=== PATIENT | male | born 1955 | race Caucasian/White ===

== ENCOUNTER → 2017-01-28 | Outpatient (CLI) | payer OTHER ==
[~2017-01-28] MED LIST: ALBU1AER9 INH; ALFU1TAB2 PO; ASPI81TA28 PO; FENO145T26 PO; TRIA75TA PO
[2017-01-28 12:59] LABS: BASO % 0.6 %; BASO ABS # 0.08 K/uL (0-0.2); COMPLETE YES; EOS % 4.4 %; HEMATOCRIT 52.4 % (42-52); IG% 1.1 %; LYMPH % 26.9 %; LYMPH ABS # 3.48 K/uL (1.2-3.4); MEAN CELL VOLUME 91.1 fL (80-100); MEAN CORPUSCULAR HEMOGLOBIN 31.8 pg (25-34); MEAN CORPUSCULAR HGB CONC 34.9 g/dl (32-36); MEAN PLATELET VOLUME 9.9 fL (7.4-10.4); MONO % 12.1 %; NEUT % 54.9 %; PLATELET COUNT 367 K/uL (130-400); RED BLOOD COUNT 5.75 M/uL (4.7-6.1); WHITE BLOOD COUNT 12.94 K/uL (4.8-10.8)
[2017-01-28 13:25] LABS: ESTIMATED AVERAGE GLUCOSE 100 mg/dl; HA1C FLAG Normal (Normal)
[2017-01-28 13:36] LABS: ALT/SGPT 50 U/L (12-78); BLOOD UREA NITROGEN 19 mg/dl (7-18); BUN/CREATININE RATIO 14.4 (10-20); CARBON DIOXIDE 28 mmol/L (21-32); CHLORIDE 108 mmol/L (98-107); CHOLESTEROL 213 mg/dl (0-200); GLUCOSE 98 mg/dl (70-99); SODIUM 141 mmol/L (136-145); TRIGLYCERIDES 229 mg/dl (0-150); VERY LOW DENSITY LIPOPROT CALC 46 mg/dl
[2017-01-28 14:03] LABS: ALKALINE PHOSPHATASE 59 U/L (45-117); AST/SGOT 50 U/L (15-37); CHOLESTEROL/HDL RATIO 5.9; HDL CHOLESTEROL 36 mg/dl; LDL CHOLESTEROL CALCULATED 131 mg/dl
== END | disposition home or self-care (01) ==
LOC: C.LABPVFM 09:09
PROVIDERS: ATTEND Nurse Practitioner Family
DX: R39.9 Unspecified symptoms and signs involving the genitourinary system (principal); R73.01 Impaired fasting glucose; E78.5 Hyperlipidemia, unspecified; F41.9 Anxiety disorder, unspecified; D45 Polycythemia vera

== ENCOUNTER → 2017-03-30 | Outpatient (CLI) | payer OTHER | END | disposition home or self-care (01) | LOC: C.LABPVFM 08:53 | PROVIDERS: ATTEND Nurse Practitioner Family | DX: E55.9 Vitamin D deficiency, unspecified (principal) ==

== ENCOUNTER → 2017-05-08 | Outpatient (CLI) | payer OTHER ==
[2017-05-09 12:41] VITALS: PULSE 62; O2SAT 90
== END | disposition home or self-care (01) ==
LOC: C.RC 16:41
PROVIDERS: ATTEND Physician Assistant
DX: D45 Polycythemia vera (principal); J45.909 Unspecified asthma, uncomplicated

== ENCOUNTER → 2017-06-15 | Outpatient (CLI) | payer OTHER ==
[2017-06-15 17:40] LABS: HEMATOCRIT 50.3 % (42-52); HEMOGLOBIN 16.7 g/dL (14.0-18.0); MEAN CELL VOLUME 89.3 fL (80-100); MEAN CORPUSCULAR HEMOGLOBIN 29.7 pg (25-34); MEAN CORPUSCULAR HGB CONC 33.2 g/dl (32-36); NUCLEATED RED BLOOD CELL ABS 0.02 K/uL (0-0); PLATELET COUNT 446 K/uL (130-400); RED CELL DISTRIBUTION WIDTH CV 14.1 % (11.5-14.5); RED CELL DISTRIBUTION WIDTH SD 45.8 fL (36.4-46.3); WHITE BLOOD COUNT 13.36 K/uL (4.8-10.8)
== END | disposition home or self-care (01) ==
LOC: C.LABPVFM 13:26
PROVIDERS: ATTEND Internal Medicine Hematology & Oncology
DX: D75.1 Secondary polycythemia (principal)

== ENCOUNTER 2021-09-07 06:25 | Observation (INO) ==
--- NOTE | 2021-08-05 16:52 | PAT Medication Instructions ---
Medication Instructions Date of Service August 05, 2021 Home Medications Medication Instructions Recorded sodium chloride 3.5 % for 3 ml INHALATION BID #240 ml 10/09/20 nebulization (Hyper-Sigifredo) CPAP Machine #1 ea 04/12/21 albuterol sulfate 90 mcg/actuation 2 puff INHALATION QID PRN #54 g 06/03/21 aerosol inhaler (Ventolin HFA) Wheeled Walker #1 ea 07/23/21 budesonide 160 mcg-glycopyr 9 2 inh INHALATION BID #3 inhaler 07/27/21 mcg-formot 4.8 mcg/actuation HFA inhaler (Breztri Aerosphere) cholecalciferol (vitamin D3) 25 mcg (1,000 unit) capsule (Vitamin D3) 1,000 unit PO QAM umgsmmngftum-utgcoagl-ljtqba tablet (Multivitamin 50 Plus) 1 tab PO QAM aspirin 81 mg tablet 81 mg PO QAM ipratropium 0.5 mg-albuterol 3 mg (2.5 mg base)/3 mL nebulization soln 3 ml INH QID PRN sodium chloride 3.5 % for nebulization (Hyper-Sigifredo) 3 ml INHALATION BID CPAP Machine #1 ea albuterol sulfate 90 mcg/actuation aerosol inhaler (Ventolin HFA) 2 puff INHALATION QID PRN Wheeled Walker #1 ea budesonide 160 mcg-glycopyr 9 mcg-formot 4.8 mcg/actuation HFA inhaler (Breztri Aerosphere) 2 inh INHALATION BID bupropion HCl 100 mg tablet,12 hr sustained-release 100 mg PO QAM furosemide 20 mg tablet (Lasix) 20 mg PO QAM lisinopril 20 mg tablet 20 mg PO QAM potassium chloride 10 mEq tablet,extended release 10 meq PO QAM rosuvastatin 10 mg tablet 10 mg PO QAM DO NOT take the morning of surgery cholecalciferol (vitamin D3) 25 mcg (1,000 unit) capsule (Vitamin D3) 1,000 unit PO QAM qoudvhjgrpoz-xncljxow-icdvup tablet (Multivitamin 50 Plus) 1 tab PO QAM furosemide 20 mg tablet (Lasix) 20 mg PO QAM lisinopril 20 mg tablet 20 mg PO QAM potassium chloride 10 mEq tablet,extended release 10 meq PO QAM Take morning of surgery With a small sip of water, OTHERWISE NOTHING TO EAT OR DRINK AFTER MIDNIGHT: aspirin 81 mg tablet 81 mg PO QAM (unless directed otherwise by surgeon) ipratropium 0.5 mg-albuterol 3 mg (2.5 mg base)/3 mL nebulization soln 3 ml INH QID PRN(if needed) sodium chloride 3.5 % for nebulization (Hyper-Sigifredo) 3 ml INHALATION BID albuterol sulfate 90 mcg/actuation aerosol inhaler (Ventolin HFA) 2 puff INHALATION QID PRN(use if needed; please bring with you to hospital day of surgery if possible) budesonide 160 mcg-glycopyr 9 mcg-formot 4.8 mcg/actuation HFA inhaler (Breztri Aerosphere) 2 inh INHALATION BID rosuvastatin 10 mg tablet 10 mg PO QAM bupropion HCl 100 mg tablet,12 hr sustained-release 100 mg PO QAM Take evening before surgery ipratropium 0.5 mg-albuterol 3 mg (2.5 mg base)/3 mL nebulization soln 3 ml INH QID PRN(if needed) sodium chloride 3.5 % for nebulization (Hyper-Sigifredo) 3 ml INHALATION BID albuterol sulfate 90 mcg/actuation aerosol inhaler (Ventolin HFA) 2 puff INHALATION QID PRN(if needed) budesonide 160 mcg-glycopyr 9 mcg-formot 4.8 mcg/actuation HFA inhaler (Breztri Aerosphere) 2 inh INHALATION BID Other Notes If you have any questions please call us at [phone] or [phone] or [phone] or [phone]
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
[~2021-09-07 06:25] MED LIST changes: +ACETAMINOPHEN 500 MG TAB PO SCH; -ALBU1AER9 INH; -ALFU1TAB2 PO; -ASPI81TA28 PO; +BUPIVACAINE LIPOSOME/PF 266 MG, BUPIVACAINE/EPINEPHRINE 50 ML, SODIUM CHLORIDE 0.9% 30 ... INFIL SCH; +FAMOTIDINE 20 MG TAB PO SCH; -FENO145T26 PO; +GABAPENTIN 300 MG CAP PO SCH; +LR 500ML BOLUS, THEN 15ML/HR IV SCH; +LR 60ML/HR IV SCH; +Scopolamine 1 MG TDSY TD SCH; +TRANEXAMIC ACID 1,000 MG **IV Intra-op IV SCH; +TRANEXAMIC ACID 1,000 MG **IV Pre-op IV SCH; -TRIA75TA PO; +dexAMETHasone 4 MG TAB PO SCH
[2021-09-07] MEDS ORDERED: BUPIVACAINE 0.5 % 5 MG/1 ML PF 10ML VIAL ONE (06:29)
[2021-09-07] MEDS ORDERED: ROPIVACAINE 0.5% 5 MG/ML 30 ML VIAL ONE (06:29)
--- NOTE | 2021-09-07 06:53 | History & Physical Bridge Note ---
Date of Service September 07, 2021 History & Physical Bridge Note I have examined the patient, reviewed the History & Physical and in the interval since the performance of the History & Physical I have noted the following changes of clinical significance: no changes noted
[2021-09-07] MEDS ORDERED: fentaNYL citrate 100 MCG/2 ML VIAL ONE (07:25)
[2021-09-07] MEDS ORDERED: PROPOFOL IV EMULSION 10 MG/ML 20 ML VIAL IV ONE ×3 (07:25→10:57)
[2021-09-07] MEDS ORDERED: MIDAZOLAM HCL 1 MG/ML 2ML VIAL ONE ×2 (07:26→10:09)
[2021-09-07] MEDS ORDERED: ATROPINE SULFATE 0.1 MG/ML 10ML SYR IV PRN (08:27)
[2021-09-07] MEDS ORDERED: fentaNYL citrate 100 MCG/2 ML VIAL IV PRN (08:27)
[2021-09-07] MEDS ORDERED: ONDANSETRON INJ 2 MG/ML 2 ML VIAL IV PRN ×2 (08:27→12:27)
[2021-09-07] MEDS ORDERED: ePHEDrine sulfate 50 MG/ML AMP IV PRN (08:27)
[2021-09-07] MEDS ORDERED: SODIUM CHLORIDE 0.9% PF 50 ML VIAL ONE (08:46)
[2021-09-07] MEDS ORDERED: BUPIVACAINE/EPINEPHRINE 0.25% 1:200,000 30 ML VIAL ONE (08:46)
[2021-09-07] MEDS ORDERED: BUPIVACAINE LIPOSOME 1.3% 266 MG/20 ML VIAL ONE (08:46)
[2021-09-07] MEDS ORDERED: Nursing to Pharmacy Communication SCH (09:00)
[2021-09-07] MEDS ORDERED: VANCOMYCIN HCL 1000MG/20ML VIAL ONE (09:18)
[2021-09-07] MEDS ORDERED: ePHEDrine sulfate 50 MG/ML AMP ONE (09:25)
[2021-09-07] MEDS ORDERED: PHENYLEPHRINE 100MCG/ML 5ML SYR ONE (09:25)
[2021-09-07] MEDS ORDERED: GLYCOPYRROLATE 0.2 MG/ML VIAL ONE (09:27)
[2021-09-07] MEDS ORDERED: ONDANSETRON INJ 2 MG/ML 2 ML VIAL ONE (09:27)
[2021-09-07] MEDS ORDERED: KETAMINE 50 MG/5 ML SYRINGE ONE (09:27)
--- NOTE | 2021-09-07 11:24 | Operative Report ---
PG Post Operative Report Pre & Post Diagnosis Operation Date: 09/07/21 08:50 Pre-Op Diagnosis: Right Knee Advanced Degenerative Joint Disease Post-Op Diagnosis: Right Knee Advanced Degenerative Joint Disease I identified the patient and participated in the time-out.: Yes Procedure Operation Date: 09/07/21 08:50 Actual Procedures p Right Total Knee Arthroplasty(Right) - Stan Henderson MD Surgeon Stan Henderson MD Field Radio Operator Rolando Lipscomb PA-C Estimated Blood Loss 100 Findings Consistent with Post-Op Diagnosis Operative findings revealed advanced right knee tricompartment DJD. He had pretty extensive grade 4 vvci-vs-jnjd disease in all 3 compartments most severe in the medial side. He had a fixed varus deformity to his knee and about a 10 degree flexion contracture preoperatively. Moderate-sized joint effusion. Fluids 1200 cc Specimens Right knee sent for pathology Anesthesia Type Spinal MAC Complications none Indications Patient is 65-year-old gentleman said a long history of bilateral knee pain discomfort right side greater than left. Is been through extensive conservative treatment of years which became less successful over time. X-rays show advanced right knee DJD. He is a very large gentleman with a BMI of 53. He elected proceed with total knee arthroplasty. We put a stem in his tibia in order to try to minimize his risk of loosening. Description of Procedure Operative implants consist of: 1 Biomet Vanguard size 75 right posterior stabilized femoral component. 2. Biomet Vanguard 360 size 79 tibial tray with a 80 mm x 16 mm stem with a 5 mm offset and a small cruciate wing. 3. 10 mm posterior stabilized polyethylene insert. 4. Is a 34 x 8 and half all probably patella. The patient was taken the operating, identified, and placed on the operating table supine position protectors were properly padded. IV antibiotics tried by anesthesia team. A spinal anesthetic and abductor canal block had provided holding area. A Abdi catheter was placed in sterile fashion a right thigh turn was then placed in the right lower extremities then prepped and draped in usual sterile fashion. The right leg was elevated exsanguinated with use of an Esmarch in terms playset 350 mmHg. An anterior approach of the right knee was then performed through a longitudinal incision centered over the patella. Sharp dissection was carried through subcutaneous tissue down to the level of the extensor mechanism. A medial parapatellar arthrotomy incision was made. Some subperiosteal dissection was carried out medially. The fat pad was resected beneath patella tendon. Lateral patellofemoral ligament was released. Patella subluxated laterally and the knee was flexed. The osteophytes were taken off distal femur. The ACL and PCL were then released from distal femur the tibia subluxated anteriorly. I then resected the tibial eminence. The canal finder was used to enter the IM canal and then reamed up to a size 16. The intramedullary cutting guide was attached to the IM felisha and the proximal tibial cut was made remove about a millimeter bone from most deficient aspect of the posterior medial tibial plateau. The tibia was then sized to a size 79. This femoral osteophytes taken off medial and posterior medially. This was prepared for a 5 mm offset stem and a small cruciate wing. The implant was assembled and placed and fit nicely. Attention drawn the femur. The distal femur examined the sharp drop with intramedullary canal was suction. A right 6 degree valgus cutting guide was placed. Distal femoral cutting block was pinned in place. Distal femoral cut was made to take an additional 3 mm bone off distal femur. The femur was then sized to a size 75. We did downsize this slightly. The AP cutting block was pinned parallel to the epicondylar axis which was 4 degrees of external rotation. Anterior cut, anterior chamfer, posterior cut, posterior chamfer cuts were made. The box cutting guide was plac ed in just slight lateral box cut was made. The knee was flexed. The remnants of medial lateral menisci were excised. The osteophytes were taken off the posterior aspect of femur. A trial femoral component was placed. The tibial tray was already in place. I then trialed the knee and the 10 mm insert fit most appropriately. Attention drawn the patella. The patella was cleaned of all soft tissues. Patella thickness measured 22 mm in thickness was cut down to 14. Was sized to a size 34 patella. The lateral osteophyte was removed. The lug holes were drilled for the 34 patella. I then trialed the knee and the patella tracked nicely with no thumbs test. Attention drawn to placing permanent components. Nupathe all trial components were removed. A bone plug was placed into the distal femur limit blood loss. Double batch Palacos G cement was mixed. I did add an additional gram of vancomycin due to this patient's history of morbid obesity. A Biomet Vanguard size 75 right posterior stabilized femoral component, size 79 tibial tray with an 80 x 16 mm offset stem and a small cruciate wing, a 10 mm posterior stabilized polyethylene insert, and a 34 x 8 and half all polypatella then cemented in place. New spreadout into full extension until cement hardened. Final cement checkup then performed. Pericapsular tissues were injected with a total of 100 cc of combination of 20 cc of Exparel, 30 cc normal saline, 50 cc of quarter percent Marcaine with epinephrine. Patient did receive 1 g tranexamic acid. The tourniquet was then let down for turn time 70 minutes. Hemostasis reduced electrocautery. Extensor mechanism closed with combination 1 PDS suture #1 Vicryl suture in hapgnd-ob-osffa fashion. Extensor mechanism checked found to be intact the subcutaneous tissue then closed 2 Dexon suture in buried interrupted fashion skin was closed skin trev. Leg was then cleaned and dried a sterile dressing was Xeroform, 4 fours, sterile cast padding, Raymond bandage were applied. Patient then transferred to the recovery room in stable condition. Patient tolerated procedure well and there were no complications. Rolando Lipscomb, my physician laundry assistant, was present for the entire procedure. His assistance was essential and required for appropriate patient positioning, prepping and draping, surgical exposure, performing the technical details of the operation, placement the implants, closure of the wound, and placement of the sterile bandage. I attest to the content of the Intraoperative Record and any orders documented therein. Any exceptions are noted below.
--- NOTE | 2021-09-07 12:10 | Anesthesiology Progress Note ---
Date of Service September 07, 2021 Anesthesia Post Procedure Vital Signs Vital Signs: Temp Pulse Pulse Resp BP Pulse Ox 09/07/21 12:00 85 20 131/67 95 09/07/21 11:45 84 20 125/67 97 09/07/21 11:35 97.5 F L 81 22 134/70 98 09/07/21 11:25 90 22 131/60 95 09/07/21 11:15 98.2 F 93 H 14 121/57 L 97 09/07/21 07:16 98.2 F 88 22 134/77 96 Pain Intensity Right Knee: Pain Intensity: 3 Transfer of Care Handoff Completed per policy Notes Mental Status: alert / awake / arousable and participated in evaluation Patient Amnestic to Procedure: Yes Nausea / Vomiting: adequately controlled Pain: adequately controlled Airway Patency, RR, SpO2: stable & adequate BP & HR: stable & adequate Hydration State: stable & adequate Neuraxial Anesthesia: was administered and sensory block is resolving Anesthetic Complications: no major complications apparent and Pt Satisfied with anesthetic care
[2021-09-07] MEDS ORDERED: ALBUTEROL HFA 8 GM INHALER INH PRN (12:27)
[2021-09-07] MEDS ORDERED: METOCLOPRAMIDE HCL INJ 5 MG/ML 2 ML VIAL IV PRN (12:27)
[2021-09-07] MEDS ORDERED: NALOXONE HCL 0.4 MG/1 ML VIAL/CARP IV PRN (12:27)
[2021-09-07] MEDS ORDERED: ALBUT/IPRATROP 3MG/0.5MG NEB 3 ML VIAL INH PRN (12:27)
[2021-09-07] MEDS ORDERED: bisacodyL 10 MG SUPP PR PRN (12:27)
[2021-09-07] MEDS ORDERED: MAGNESIUM HYDROXIDE SUSP 30 ML UDC PO PRN (12:27)
[2021-09-07] MEDS ORDERED: ALUMINUM/MAGNESIUM SUSP 30 ML UDC PO PRN (12:27)
--- NOTE | 2021-09-07 13:29 | XRay Report ---
XR knee RT 1 or 2V routine CLINICAL HISTORY: Postoperative evaluation. COMPARISON: Right knee radiographs January 20, 2021. FINDINGS: Alignment of the total right knee arthroplasty is anatomic. There is a longstem tibial com ponent. Skin trev are present. No periprosthetic fracture or unexpected radiopaque foreign bodies are present. IMPRESSION: Expected findings following total right knee arthroplasty. ACT 112: Negative or not required by law. Electronically signed by: Ty Archuleta M.D. 09/07/2021 1:27 PM
[2021-09-07] MEDS: SODIUM CHLORIDE 0.9% 1000ML 1,000 ML IV SCH ×2 (14:11→19:54)
[2021-09-07] MEDS: oxyCODONE HCL IR 5 MG TAB (IMMEDIATE RELEASE) PO PRN (14:15)
[2021-09-07] MEDS: KETOROLAC 30 MG/ML VIAL IV SCH ×2 (14:15→19:54)
[2021-09-07] MEDS: Scopolamine CHECK PATCH PLACEMENT SCH ×2 (15:16→22:32)
[2021-09-07] MEDS: HYDROmorphone INJ 0.5 MG/0.5 ML SYR IV PRN (16:48)
[2021-09-07] MEDS: ceFAZolin 2000MG 2,000 MG/15 ML SYR IV SCH ×2 (16:48→22:31)
[2021-09-07] MEDS: ASCORBIC ACID 500 MG TAB PO SCH (16:48)
[2021-09-07] MEDS ORDERED: TRANEXAMIC ACID / 0.7% NACL 1,000 MG/100 ML BAG IV SCH (17:15)
[2021-09-07] MEDS: ASPIRIN 81 MG ECTAB PO SCH (19:54)
[2021-09-07] MEDS: DOCUSATE SODIUM 100 MG CAP PO SCH (19:55)
[2021-09-07] MEDS: SENNA 8.6 MG TAB PO SCH (19:55)
[2021-09-07] MEDS: TAPENTADOL HCL ER 50 MG TABCR PO SCH (20:17)
[2021-09-07] MEDS: ACETAMINOPHEN 500 MG TAB PO SCH (22:31)
[2021-09-08] MEDS: KETOROLAC 30 MG/ML VIAL IV SCH ×4 (02:02→19:22)
[2021-09-08] MEDS: SODIUM CHLORIDE 0.9% 1000ML 1,000 ML IV SCH (02:02)
[2021-09-08] MEDS: ACETAMINOPHEN 500 MG TAB PO SCH ×3 (05:15→21:22)
[2021-09-08] MEDS: oxyCODONE HCL IR 5 MG TAB (IMMEDIATE RELEASE) PO PRN ×3 (05:16→18:13)
[2021-09-08] MEDS: HYDROmorphone INJ 0.5 MG/0.5 ML SYR IV PRN (06:27)
[2021-09-08 06:51] LABS: Hematocrit (blood only) 34.6 % (42-52); Hemoglobin 10.4 g/dL (14.0-18.0); Mean Corpuscular Hgb Conc 30.1 g/dL (32-36); Mean Corpuscular Volume 79.9 fL (80-100); Mean Platelet Volume 8.4 fL (7.4-10.4); Platelet Count 331 K/uL (130-400); RDW Coefficient of Variation 16.1 % (11.5-14.5); RDW Standard Deviation 46.9 fL (36.4-46.3); Red Blood Count 4.33 M/uL (4.7-6.1); White Blood Count 22.49 K/uL (4.8-10.8)
[2021-09-08 07:11] LABS: BUN Creatinine Ratio 17.7 (10-20); Calcium 8.5 mg/dl (8.5-10.1); Creatinine Clr Calc Pharmacy 97.7 ml/min; Est GFR (African American) 78.6 ml/min; Est GFR (Non-African American) 67.8 ml/min; Potassium 4.6 mmol/L (3.5-5.1)
[2021-09-08] MEDS ORDERED: dexAMETHasone 10 MG in SYRINGE 0 ML IV SCH (08:00)
[2021-09-08] MEDS: TAPENTADOL HCL ER 50 MG TABCR PO SCH ×2 (08:54→21:22)
[2021-09-08] MEDS: MULTIVITAMIN TAB PO SCH (08:54)
[2021-09-08] MEDS: ASCORBIC ACID 500 MG TAB PO SCH ×2 (08:54→16:11)
[2021-09-08] MEDS: TAMSULOSIN HCL 0.4 MG CAP PO SCH (08:54)
[2021-09-08] MEDS: ROSUVASTATIN CALCIUM 10 MG TAB PO SCH (08:54)
[2021-09-08] MEDS: CHOLECALCIFEROL 1,000 UNITS 25 MCG TAB PO SCH (08:54)
[2021-09-08] MEDS: POTASSIUM CHLORIDE 10 MEQ TABCR PO SCH (08:55)
[2021-09-08] MEDS: ASPIRIN 81 MG ECTAB PO SCH ×2 (08:55→21:22)
[2021-09-08] MEDS: Scopolamine CHECK PATCH PLACEMENT SCH ×3 (08:55→23:09)
[2021-09-08] MEDS: CEROVITE ADV FORMULA TAB PO SCH (08:55)
[2021-09-08] MEDS: FUROSEMIDE 20 MG TAB PO SCH (08:55)
[2021-09-08] MEDS: DOCUSATE SODIUM/SENNA 50/8.6MG TAB PO SCH (08:55)
[2021-09-08] MEDS: lisinopril 20 MG TAB PO SCH (08:55)
[2021-09-08] MEDS: buPROPion SR 100 MG TABCR PO SCH (08:55)
[2021-09-08] MEDS: DOCUSATE SODIUM 100 MG CAP PO SCH ×2 (08:55→21:22)
--- NOTE | 2021-09-08 15:03 | Progress Notes ---
DATE OF NOTE: 09/08/2021. SUBJECTIVE: A 65-year-old gentleman, postoperative day 1 from a right knee replacement. Having quit e a bit of pain. He says the oral pain medicine is not working too well. He is using some IV medici ne which seems to help quite a bit more. No chest pain or shortness of breath. Not feeling dizzy or lightheaded. OBJECTIVE: VITAL SIGNS: Temperature is 37.0. Vital signs are stable. GENERAL: Shows a large, obese, middle-aged male. Sitting up in his bedside chair. He looks reasona tye comfortable. LUNGS: Clear to auscultation. HEART: Regular rate and rhythm. ABDOMEN: Soft, nontender, nondistended. EXTREMITIES: Grossly neurovascularly intact except as follows. Examination of the right leg reveals the dressing and bandage to be in place. There is a little bit of bloody drainage through the bandage. He can dorsiflex and plantarflex his foot appropriately. He is neurologically intact. He can do a straight leg raise with some effort. LABORATORY DATA: Hemoglobin 10.4. Hematocrit 34.6. Electrolytes are stable. ASSESSMENT: A 65-year-old male postop day 1 from right knee replacement. Having quite a bit of pain . He is neurologically intact. PLAN: 1. DVT prophylaxis include thigh-high TEDs, SCDs, and aspirin twice a day. 2. PT, OT, weightbear as tolerated. Right total knee protocol. 3. Pain control, doing okay with current pain regimen, but requiring IV medicine currently. We will see if we can get him just taking p.o. meds here in the next 24 hours. DISPOSITION: Plan is to discharge to home with some home health once he is medically stable and pain controlled. Job ID: [id number]
[2021-09-08] MEDS: SENNA 8.6 MG TAB PO SCH (21:22)
[2021-09-08 22:17] VITALS: TEMP 98.2
[2021-09-09] MEDS: KETOROLAC 30 MG/ML VIAL IV SCH ×2 (02:00→07:51)
[2021-09-09] MEDS: ACETAMINOPHEN 500 MG TAB PO SCH ×2 (05:44→14:59)
[2021-09-09 07:37] VITALS: BP 122/55; PULSE 66; O2SAT 95
[2021-09-09] MEDS: ROSUVASTATIN CALCIUM 10 MG TAB PO SCH (07:49)
[2021-09-09] MEDS: CEROVITE ADV FORMULA TAB PO SCH (07:49)
[2021-09-09] MEDS: lisinopril 20 MG TAB PO SCH (07:49)
[2021-09-09] MEDS: TAPENTADOL HCL ER 50 MG TABCR PO SCH (07:49)
[2021-09-09] MEDS: DOCUSATE SODIUM 100 MG CAP PO SCH (07:50)
[2021-09-09] MEDS: buPROPion SR 100 MG TABCR PO SCH (07:50)
[2021-09-09] MEDS: ASCORBIC ACID 500 MG TAB PO SCH (07:50)
[2021-09-09] MEDS: FUROSEMIDE 20 MG TAB PO SCH (07:50)
[2021-09-09] MEDS: DOCUSATE SODIUM/SENNA 50/8.6MG TAB PO SCH (07:50)
[2021-09-09] MEDS: POTASSIUM CHLORIDE 10 MEQ TABCR PO SCH (07:50)
[2021-09-09] MEDS: TAMSULOSIN HCL 0.4 MG CAP PO SCH (07:50)
[2021-09-09] MEDS: ASPIRIN 81 MG ECTAB PO SCH (07:50)
[2021-09-09] MEDS: CHOLECALCIFEROL 1,000 UNITS 25 MCG TAB PO SCH (07:50)
[2021-09-09] MEDS: Scopolamine CHECK PATCH PLACEMENT SCH (07:51)
[2021-09-09] MEDS: MULTIVITAMIN TAB PO SCH (07:51)
--- NOTE | 2021-09-09 15:35 | Progress Notes ---
DATE OF SERVICE: 09/09/2021 SUBJECTIVE: A 65-year-old gentleman now postop day 2 from right knee replacement. He is doing quite a bit better today. He is having pain, but it is controlled. No chest pain or shortness of breath. Not feeling dizzy or lightheaded. OBJECTIVE: VITAL SIGNS: Temperature 36.8. Vital signs are stable. PHYSICAL EXAMINATION: GENERAL: Shows a pleasant middle-aged male. He is sitting up in his bed, looked pretty comfortable this morning when I visited him. EXTREMITIES: Examination of the right leg reveals the dressing with just a slight bit of bloody drai nage on it. His leg is well aligned. Calf is soft and supple. He can dorsiflex and plantarflex his foot appropriately. LABORATORY: No new labs. ASSESSMENT: A 65-year-old gentleman postoperative day 2 from a right knee replacement. He seems to be doing quite a bit better today. His pain is controlled. He is neurologically intact. PLAN: 1. DVT prophylaxis includes thigh-high TEDs, SCDs, and aspirin twice a day. 2. PT, OT, weightbear as tolerated. Right total knee protocol. 3. Pain control, doing okay with current pain regimen. 4. Disposition: Plan to discharge to home with some home health today. Job ID: [id number]
--- NOTE | 2021-09-11 14:30 | Discharge Summary ---
Date of Service September 11, 2021 Discharge Data Procedures Performed Operation Date: 09/07/21 08:50 Actual Procedures p Right Total Knee Arthroplasty(Right) - Stan Henderson MD Hospital Course (1) Status post total right knee replacement: This patient is a 65 year old male admitted on 09/07/21 and underwent total knee arthroplasty. He tolerated the procedure well and there were no complications. Transferred to the PACU post op and later to the orthopedic floor for further care. He was given ancef for antibiotic prophylaxis. He was also given LUCIANA stockings, SCDs, and aspirin for DVT prophylaxis. Hemoglobin, hematocrit, and vital signs were monitored during his hospital stay and remained stable. Did not require any blood transfusions. There were no complications during his hospital stay. By post op day #2 the patient was tolerating a regular diet, pain was reasonably controlled with oral pain medicine, and he was participating in physical therapy. On post op day #2 the patient was discharged home and set up with home health care. He was given printed discharge instructions including prescriptions for extra strength tylenol, aspirin, toradol, zofran, flomax, and oxycodone. Continue physical therapy, weight bearing as tolerated. Continue LUCIANA stockings. Follow up approximately 2 weeks post op or sooner if there are problems or concerns. Coding Level of Care Code None Diagnoses Status post total right knee replacement Z96.651
== END 2021-09-09 15:23 | disposition home health service (06) ==
LOC: ASU 06:25 → 3E 06:25

== ENCOUNTER 2022-05-25 05:07 | Inpatient (IN) ==
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
[2022-05-25] MEDS ORDERED: METOCLOPRAMIDE HCL 10 MG TABLET PO SCH (06:00)
[2022-05-25] MEDS ORDERED: LR 500ML BOLUS, THEN 15ML/HR IV SCH (06:00)
[2022-05-25] MEDS ORDERED: FAMOTIDINE 20 MG TAB PO SCH (06:00)
[2022-05-25] MEDS ORDERED: LR 60ML/HR IV SCH (06:00)
[2022-05-25] MEDS ORDERED: Scopolamine 1 MG TDSY TD SCH (06:00)
[2022-05-25] MEDS ORDERED: TRANEXAMIC ACID 1,000 MG **IV Pre-op IV SCH (06:00)
[2022-05-25] MEDS ORDERED: CeleBREX 200 MG CAP PO SCH (06:00)
[2022-05-25] MEDS ORDERED: ACETAMINOPHEN 500 MG TAB PO SCH (06:00)
[2022-05-25] MEDS ORDERED: BUPIVACAINE 0.5 % 5 MG/1 ML PF 10ML VIAL ONE (06:17)
[2022-05-25] MEDS ORDERED: BUPIVACAINE/EPINEPHRINE 0.5% MPF 1:200,000 30 ML VIAL ONE (06:36)
[2022-05-25] MEDS ORDERED: fentaNYL citrate 100 MCG/2 ML VIAL ONE (06:44)
[2022-05-25] MEDS ORDERED: MIDAZOLAM HCL 1 MG/ML 2ML VIAL ONE ×3 (06:44→08:24)
[2022-05-25] MEDS ORDERED: MoRPHine SULFATE PF 1 MG/ML 10 ML AMP/VIAL ONE (06:45)
--- NOTE | 2022-05-25 06:58 | History & Physical Bridge Note ---
Date of Service May 25, 2022 History & Physical Bridge Note I have examined the patient, reviewed the History & Physical and in the interval since the performance of the History & Physical I have noted the following changes of clinical significance: no changes noted
[2022-05-25] MEDS ORDERED: ePHEDrine sulfate 50 MG/ML AMP IV PRN (07:03)
[2022-05-25] MEDS ORDERED: ONDANSETRON INJ 2 MG/ML 2 ML VIAL IV PRN ×2 (07:03→10:28)
[2022-05-25] MEDS ORDERED: ATROPINE SULFATE 0.1 MG/ML 10ML SYR IV PRN (07:03)
[2022-05-25] MEDS ORDERED: KETAMINE 50 MG/5 ML SYRINGE ONE (07:04)
[2022-05-25] MEDS ORDERED: ALBUMIN HUMAN 5% 12.5 GM/250 ML VIAL IV ONE (07:27)
[2022-05-25] MEDS ORDERED: LIDOCAINE 2% MPF LOCAL 5 ML VIAL INFIL ONE (07:40)
[2022-05-25] MEDS ORDERED: ONDANSETRON INJ 2 MG/ML 2 ML VIAL ONE (07:40)
[2022-05-25] MEDS ORDERED: PHENYLEPHRINE HCL 10 MG/ML VIAL ONE (07:40)
[2022-05-25] MEDS ORDERED: VASOPRESSIN 20 UNIT/ML VIAL ONE (07:40)
[2022-05-25] MEDS ORDERED: PROPOFOL IV EMULSION 10 MG/ML 20 ML VIAL IV ONE (07:40)
[2022-05-25] MEDS ORDERED: PHENYLEPHRINE 100MCG/ML 5ML SYR IV PRN (08:51)
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
[2022-05-25] MEDS: fentaNYL citrate 100 MCG/2 ML VIAL IV PRN ×4 (09:35→09:50)
--- NOTE | 2022-05-25 10:19 | Anesthesiology Progress Note ---
Date of Service May 25, 2022 Anesthesia Post Procedure Vital Signs Vital Signs: Temp Pulse Pulse Resp BP Pulse Ox O2 Del Method 05/25/22 09:25 79 15 122/76 100 Oxymask 05/25/22 09:15 89 20 108/68 94 Oxymask 05/25/22 09:55 36.6 C 87 14 131/67 93 Nasal Cannula 05/25/22 09:45 90 22 145/68 H 91 Nasal Cannula 05/25/22 09:35 91 H 14 108/67 96 Room Air 05/25/22 09:05 86 22 112/75 95 Oxymask 05/25/22 08:57 36.5 C 85 16 108/65 99 Oxymask 05/25/22 05:45 37.0 C 89 18 146/71 H 95 Room Air O2 Flow Rate 05/25/22 09:25 2 05/25/22 09:15 3 05/25/22 09:55 2 05/25/22 09:45 2 05/25/22 09:35 05/25/22 09:05 3 05/25/22 08:57 5 05/25/22 05:45 Pain Intensity Left Hip: Pain Intensity: 3 Transfer of Care Handoff Completed per policy Notes Mental Status: alert / awake / arousable and participated in evaluation Patient Amnestic to Procedure: Yes Nausea / Vomiting: adequately controlled Pain: adequately controlled Airway Patency, RR, SpO2: stable & adequate BP & HR: stable & adequate Hydration State: stable & adequate Neuraxial Anesthesia: was administered and sensory block is resolving Anesthetic Complications: no major complications apparent and Pt Satisfied with anesthetic care
[2022-05-25] MEDS ORDERED: TAMSULOSIN HCL 0.4 MG CAP PO SCH (10:28)
[2022-05-25] MEDS ORDERED: bisacodyL 10 MG SUPP PR PRN (10:28)
[2022-05-25] MEDS ORDERED: NON-FORMULARY MEDICATION (Multivitamin-Minerals-Lutein [Multivitamin 50 Plus] Tablet) PO SCH (10:28)
[2022-05-25] MEDS ORDERED: METOCLOPRAMIDE HCL INJ 5 MG/ML 2 ML VIAL IV PRN (10:28)
[2022-05-25] MEDS ORDERED: DOCUSATE SODIUM/SENNA 50/8.6MG TAB PO SCH ×2 (10:28)
[2022-05-25] MEDS ORDERED: ALBUT/IPRATROP 3MG/0.5MG NEB 3 ML VIAL INH PRN (10:28)
[2022-05-25] MEDS ORDERED: diphenhydrAMINE Capsule 25 MG CAP PO PRN (10:28)
[2022-05-25] MEDS ORDERED: NALOXONE HCL 0.4 MG/1 ML VIAL/CARP IV PRN (10:28)
[2022-05-25] MEDS ORDERED: ALUMINUM/MAGNESIUM SUSP 30 ML UDC PO PRN (10:28)
[2022-05-25] MEDS: buPROPion SR 100 MG TABCR PO SCH (10:33)
[2022-05-25] MEDS: ROSUVASTATIN CALCIUM 10 MG TAB PO SCH (10:33)
[2022-05-25] MEDS: oxyCODONE HCL IR 5 MG TAB (IMMEDIATE RELEASE) PO PRN ×2 (10:55→18:13)
[2022-05-25] MEDS: SODIUM CHLORIDE 0.9% 1000ML 1,000 ML IV SCH ×3 (10:56→23:53)
--- NOTE | 2022-05-25 11:07 | XRay Report ---
XR hip 1V LT w pelvis CLINICAL HISTORY: Postoperative evaluation. COMPARISON: Left femur radiographs May 05, 2022. FINDINGS: Alignment of the total left hip arthroplasty is anatomic. There is no periprosthetic fract ure. There are skin trev. No unexpected radiopaque foreign bodies are noted. Old, healed mid diaph yseal fracture of the left femur is again noted. This was shown on prior radiographs. There is modera te right hip joint space narrowing with osteophytosis. IMPRESSION: Expected findings following total left hip arthroplasty. ACT 112: Negative or not required by law. Electronically signed by: Ty Archuleta M.D. 05/25/2022 11:05 AM
[2022-05-25] MEDS ORDERED: ALBUTEROL HFA 8 GM INHALER INH PRN (11:14)
[2022-05-25] MEDS: UMECLIDINIUM/VILANTEROL 62.5/25MCG 7 PUFFS/INHALER INH SCH (12:16)
[2022-05-25] MEDS: FLUTICASONE FUROATE 200MCG 14 PUFFS/INHALER INH SCH (12:16)
[2022-05-25] MEDS: KETOROLAC TROMETHAMINE 15 MG/ML VIAL IV SCH ×3 (12:18→22:57)
[2022-05-25] MEDS: ASPIRIN 81 MG ECTAB PO SCH ×2 (12:18→20:05)
[2022-05-25] MEDS: POTASSIUM CHLORIDE 10 MEQ TABCR PO SCH (12:18)
[2022-05-25] MEDS: DOCUSATE SODIUM 100 MG CAP PO SCH ×2 (12:18→20:04)
[2022-05-25] MEDS: MULTIVITAMIN TAB PO SCH (12:18)
[2022-05-25] MEDS: CHOLECALCIFEROL 1,000 UNITS 25 MCG TAB PO SCH (12:19)
[2022-05-25] MEDS: lisinopril 20 MG TAB PO SCH (12:19)
[2022-05-25] MEDS: FUROSEMIDE 20 MG TAB PO SCH (12:19)
[2022-05-25] MEDS: ACETAMINOPHEN 500 MG TAB PO SCH ×2 (13:42→22:58)
[2022-05-25] MEDS: TAMSULOSIN HCL 0.4 MG CAP PO SCH (13:43)
[2022-05-25] MEDS: ceFAZolin 2000MG 2,000 MG/15 ML SYR IV SCH ×2 (14:58→22:57)
[2022-05-25] MEDS ORDERED: TRANEXAMIC ACID / 0.7% NACL 1,000 MG/100 ML BAG IV SCH (15:00)
[2022-05-25] MEDS: Scopolamine CHECK PATCH PLACEMENT SCH (15:00)
[2022-05-25] MEDS: ASCORBIC ACID 500 MG TAB PO SCH (16:45)
--- NOTE | 2022-05-25 17:17 | Progress Notes ---
DATE OF SERVICE: 05/25/2022 SUBJECTIVE: A 66-year-old gentleman postoperative from a left hip replacement. He is doing pretty w ell. Having some pain, but manageable. No chest pain or shortness of breath. Not feeling dizzy or lightheaded. OBJECTIVE: VITAL SIGNS: Temperature is 36.9. Vital signs are stable. GENERAL: Shows a large, obese male sitting up in bed, looks pretty comfortable. LUNGS: Clear to auscultation. HEART: Regular rate and rhythm. ABDOMEN: Soft, nontender, nondistended. EXTREMITIES: Grossly neurovascularly intact except as follows. Examination of the left hip reveals leg lengths to be pretty equal. His thigh is soft and supple. T he Prevena VAC dressing is in place. He can dorsiflex and plantarflex his foot appropriately. He do es not have much function of his toes, which is similar to preop. He can dorsiflex and plantarflex h is foot like he could before. X-RAYS: X-rays of the left hip from the recovery room were reviewed. It shows a left uncemented hip replacement. Components looked to be in good position. No signs of problems. ASSESSMENT: A 66-year-old morbidly obese male with a history of a femur fracture in the past, now po stoperative from a left total hip replacement done for arthritis. He is doing okay. His neurologica l function is somewhat compromised preoperatively and he is back to baseline. Hip is located. He is neurologically intact. I do think we restored his leg lengths close to equal. PLAN: 1. DVT prophylaxis includes thigh-high TEDs, SCDs, and aspirin twice a day. 2. PT/OT, weightbear as tolerated. Left total hip protocol. 3. Pain control, doing okay with current pain regimen. 4. IV antibiotics x24 hours. 5. Disposition. He is hoping to go home with home health. We will see how therapy goes. He is a ve ry large gentleman and we will see how he is getting around postoperatively. Job ID: [id number]
[2022-05-25] MEDS: SENNA 8.6 MG TAB PO SCH (20:04)
[2022-05-25] MEDS: HYDROmorphone INJ 0.5 MG/0.5 ML SYR IV PRN (20:05)
[2022-05-26] MEDS: Scopolamine CHECK PATCH PLACEMENT SCH ×3 (00:01→15:06)
[2022-05-26] MEDS: HYDROmorphone INJ 0.5 MG/0.5 ML SYR IV PRN (02:40)
[2022-05-26] MEDS: KETOROLAC TROMETHAMINE 15 MG/ML VIAL IV SCH ×4 (05:40→22:46)
[2022-05-26] MEDS: ACETAMINOPHEN 500 MG TAB PO SCH ×3 (05:41→22:46)
[2022-05-26] MEDS: oxyCODONE HCL IR 5 MG TAB (IMMEDIATE RELEASE) PO PRN ×3 (05:42→19:22)
--- NOTE | 2022-05-26 07:49 | Progress Notes ---
DATE OF SERVICE: 05/26/2022 SUBJECTIVE: A 66-year-old gentleman, postoperative day 1 from a left total hip replacement. He is d oing okay. Some pain when he got up and moved earlier this morning. He did get up and go to the bat hroom with some assistance. No chest pain or shortness of breath. Did get a little bit dizzy. OBJECTIVE: VITAL SIGNS: Temperature 36.6. Vital signs are stable. PHYSICAL EXAMINATION: GENERAL: Shows large, obese, middle-aged male. He is lying in bed this morning and looks comfortabl e. EXTREMITIES: Examination of the left hip and leg reveals Prevena VAC dressing to be in place. His l eg lengths were equal. He can dorsiflex and plantarflex his foot appropriately. He does have some w eakness in toe motion, which has been baseline. His thigh is soft and supple. LABORATORY DATA: Hemoglobin is pending. ASSESSMENT: A 66-year-old gentleman, postoperative day 1 from a left total hip replacement, doing ok ay. Morbidly obese gentleman and we will have to see how he does in therapy as far as discharge plan s, home versus rehabilitation. PLAN: 1. DVT prophylaxis to include thigh-high TEDs, SCDs, and aspirin twice a day. 2. PT, OT, and weightbear as tolerated. Left total hip protocol. 3. Pain control, doing okay with current pain regimen. 4. Disposition: We are going to have to see how he does in therapy today. He is a very large obese male and may need a rehab/correction facility stay. Job ID: [id number]
[2022-05-26] MEDS ORDERED: dexAMETHasone 10 MG in SYRINGE 0 ML IV SCH (08:00)
[2022-05-26 08:25] LABS: Basophils # (auto) 0.06 K/uL (0-0.2); Basophils % (auto) 0.3 %; Eosinophils # (auto) 0.08 K/uL (0-0.50); Eosinophils % (auto) 0.4 %; Hematocrit (blood only) 41.7 % (42.0-52.0); Hemoglobin 13.8 g/dl (14.0-18.0); Immature Granulocytes # (auto) 0.17 K/uL (0.01-0.20); Immature Granulocytes % (auto) 0.9 %; Lymphocytes # (auto) 2.95 K/uL (1.2-3.4); Lymphocytes % (auto) 15.6 %; Mean Corpuscular Hemoglobin 28.2 pg (25.0-34.0); Mean Corpuscular Hgb Conc 33.1 g/dL (32.0-36.0); Mean Corpuscular Volume 85.1 fL (80.0-100.0); Mean Platelet Volume 9.4 fL (9.4-12.4); Monocytes # (auto) 2.69 K/uL (0.11-0.59); Monocytes % (auto) 14.2 %; Neutrophils % (auto) 68.6 %; Platelet Count 343 K/uL (130-400); RDW Coefficient of Variation 15.9 % (11.5-14.5); RDW Standard Deviation 49.9 fL (36.4-46.3); White Blood Count 18.95 K/ul (4.8-10.8)
[2022-05-26 08:28] LABS: BUN Creatinine Ratio 10.9 (10-20); Calcium 8.7 mg/dl (8.5-10.1); Creatinine Clr Calc Pharmacy 109.6 ml/min; Est GFR (African American) 89.4 ml/min; Est GFR (Non-African American) 77.1 ml/min; Potassium 3.9 mmol/L (3.5-5.1)
[2022-05-26] MEDS: ROSUVASTATIN CALCIUM 10 MG TAB PO SCH (08:57)
[2022-05-26] MEDS: buPROPion SR 100 MG TABCR PO SCH (08:57)
[2022-05-26] MEDS: DOCUSATE SODIUM 100 MG CAP PO SCH ×2 (08:58→20:27)
[2022-05-26] MEDS: ASPIRIN 81 MG ECTAB PO SCH ×2 (08:58→20:27)
[2022-05-26] MEDS: MULTIVITAMIN TAB PO SCH (08:58)
[2022-05-26] MEDS: lisinopril 20 MG TAB PO SCH (08:59)
[2022-05-26] MEDS: POTASSIUM CHLORIDE 10 MEQ TABCR PO SCH (08:59)
[2022-05-26] MEDS: CHOLECALCIFEROL 1,000 UNITS 25 MCG TAB PO SCH (08:59)
[2022-05-26] MEDS: ASCORBIC ACID 500 MG TAB PO SCH ×2 (08:59→16:00)
[2022-05-26] MEDS: TAMSULOSIN HCL 0.4 MG CAP PO SCH (08:59)
[2022-05-26] MEDS: FUROSEMIDE 20 MG TAB PO SCH (09:00)
[2022-05-26] MEDS: FLUTICASONE FUROATE 200MCG 14 PUFFS/INHALER INH SCH (09:00)
[2022-05-26] MEDS: UMECLIDINIUM/VILANTEROL 62.5/25MCG 7 PUFFS/INHALER INH SCH (09:01)
[2022-05-26] MEDS: SENNA 8.6 MG TAB PO SCH (20:28)
[2022-05-27] MEDS: oxyCODONE HCL IR 5 MG TAB (IMMEDIATE RELEASE) PO PRN ×2 (03:06→09:37)
[2022-05-27] MEDS: ACETAMINOPHEN 500 MG TAB PO SCH ×3 (06:05→21:46)
[2022-05-27] MEDS: KETOROLAC TROMETHAMINE 15 MG/ML VIAL IV SCH (06:06)
--- NOTE | 2022-05-27 08:25 | Progress Notes ---
SUBJECTIVE: A 66-year-old gentleman postoperative day 2 from a left total hip replacement. He seems to be doing a little bit better today. A little bit less pain. No chest pain or shortness of breath . Apparently, he struggled a bit with therapy yesterday. OBJECTIVE: VITAL SIGNS: Temperature 37.0. Vital signs are stable. GENERAL: Shows an obese, middle-aged male. He is sitting up in bed, and looks good this morning. L ooks comfortable. EXTREMITIES: Examination of the left hip reveals the Prevena VAC dressing to be in place. Leg is we ll aligned. Leg lengths are equal. He can dorsiflex and plantarflex his foot appropriately. Nerve function is back to baseline. ASSESSMENT: A 66-year-old obese gentleman postoperative day 2 from a left hip replacement. Orthoped ically doing reasonably well. Struggled in therapy yesterday. I think he is going to need a rehab o r [facility] facility stay. PLAN: 1. DVT prophylaxis includes thigh-high TEDs, SCDs, and aspirin twice a day. 2. PT/OT. He can fully weightbear as tolerated on this left leg. 3. Pain control, seems to be doing okay with current pain regimen. 4. Disposition: Therapy has recommended a rehab stay. I certainly think this reasonable considerin g his size and has limited help at home with his . Orthopedically he is stable for discharge, an y time arrangements can be made. Job ID: [id number]
[2022-05-27] MEDS: DOCUSATE SODIUM 100 MG CAP PO SCH ×2 (08:32→21:47)
[2022-05-27] MEDS: CHOLECALCIFEROL 1,000 UNITS 25 MCG TAB PO SCH (08:32)
[2022-05-27] MEDS: POTASSIUM CHLORIDE 10 MEQ TABCR PO SCH (08:33)
[2022-05-27] MEDS: FUROSEMIDE 20 MG TAB PO SCH (08:33)
[2022-05-27] MEDS: TAMSULOSIN HCL 0.4 MG CAP PO SCH (08:33)
[2022-05-27] MEDS: ROSUVASTATIN CALCIUM 10 MG TAB PO SCH (08:33)
[2022-05-27] MEDS: ASPIRIN 81 MG ECTAB PO SCH ×2 (08:33→21:46)
[2022-05-27] MEDS: MULTIVITAMIN TAB PO SCH (08:34)
[2022-05-27] MEDS: buPROPion SR 100 MG TABCR PO SCH (08:34)
[2022-05-27] MEDS: lisinopril 20 MG TAB PO SCH (08:34)
[2022-05-27] MEDS: ASCORBIC ACID 500 MG TAB PO SCH ×2 (08:35→18:32)
[2022-05-27] MEDS: HYDROmorphone INJ 0.5 MG/0.5 ML SYR IV PRN ×2 (08:40→14:58)
[2022-05-27] MEDS: FLUTICASONE FUROATE 200MCG 14 PUFFS/INHALER INH SCH (09:38)
[2022-05-27] MEDS: UMECLIDINIUM/VILANTEROL 62.5/25MCG 7 PUFFS/INHALER INH SCH (09:38)
[2022-05-27] MEDS: Scopolamine CHECK PATCH PLACEMENT SCH ×3 (09:39→17:42)
[2022-05-27] MEDS: SENNA 8.6 MG TAB PO SCH (21:47)
[2022-05-28] MEDS: Scopolamine CHECK PATCH PLACEMENT SCH
[2022-05-28] MEDS: oxyCODONE HCL IR 5 MG TAB (IMMEDIATE RELEASE) PO PRN ×3 (01:47→14:01)
[2022-05-28] MEDS: ACETAMINOPHEN 500 MG TAB PO SCH ×3 (05:52→21:47)
[2022-05-28] MEDS: ASPIRIN 81 MG ECTAB PO SCH ×2 (08:03→21:47)
[2022-05-28] MEDS: ASCORBIC ACID 500 MG TAB PO SCH ×2 (08:03→16:54)
[2022-05-28] MEDS: buPROPion SR 100 MG TABCR PO SCH (08:04)
[2022-05-28] MEDS: CHOLECALCIFEROL 1,000 UNITS 25 MCG TAB PO SCH (08:04)
[2022-05-28] MEDS: lisinopril 20 MG TAB PO SCH (08:04)
[2022-05-28] MEDS: MULTIVITAMIN TAB PO SCH (08:04)
[2022-05-28] MEDS: DOCUSATE SODIUM 100 MG CAP PO SCH ×2 (08:04→21:47)
[2022-05-28] MEDS: FUROSEMIDE 20 MG TAB PO SCH (08:04)
[2022-05-28] MEDS: POTASSIUM CHLORIDE 10 MEQ TABCR PO SCH (08:04)
[2022-05-28] MEDS: ROSUVASTATIN CALCIUM 10 MG TAB PO SCH (08:04)
[2022-05-28] MEDS: UMECLIDINIUM/VILANTEROL 62.5/25MCG 7 PUFFS/INHALER INH SCH (08:05)
[2022-05-28] MEDS: TAMSULOSIN HCL 0.4 MG CAP PO SCH (08:05)
[2022-05-28] MEDS: FLUTICASONE FUROATE 200MCG 14 PUFFS/INHALER INH SCH (08:05)
--- NOTE | 2022-05-28 08:35 | Progress Notes ---
DATE OF SERVICE: 05/28/2022. SUBJECTIVE: A 66-year-old obese gentleman postoperative day #3 from a left total hip replacement. H e is getting a bit better every day. Quite a bit of hip soreness this morning. No chest pain or howard rtness of breath. Not feeling dizzy or lightheaded. OBJECTIVE: VITAL SIGNS: Temperature 37.1. Vital signs are stable. GENERAL: Shows a large middle-aged male. He is sitting up in his bed, looks comfortable this mornin g. EXTREMITIES: Examination of the left hip reveals a Prevena VAC dressing to be in place. His thigh i s soft and supple. Hip is located. Leg lengths were equal. He is neurologically stable. ASSESSMENT: A 66-year-old gentleman postoperative day #3 from a left total hip replacement, doing re asonably well. He was initially having quite a bit of trouble getting around, but seems to be improv ing a little bit daily. He is really waiting to go to rehabilitation. PLAN: 1. DVT prophylaxis includes thigh-high TEDs, SCDs, and aspirin twice daily. 2. PT/OT, weightbear as tolerated. Left total hip protocol. 3. Pain control, doing okay with current pain regimen. 4. Wound care. Prevena VAC dressings in place. It will stay on for 7 days. 5. Disposition. Just waiting for discharge to a senior care facility versus rehabilitation. I do not believe any beds are available at weekend and hopefully discharged/transfer on Monday. Job ID: [id number]
[2022-05-28] MEDS: HYDROmorphone INJ 0.5 MG/0.5 ML SYR IV PRN ×2 (11:50→17:01)
[2022-05-28] MEDS: MAGNESIUM HYDROXIDE SUSP 30 ML UDC PO PRN (17:02)
[2022-05-28] MEDS: SENNA 8.6 MG TAB PO SCH (21:47)
[2022-05-29] MEDS: oxyCODONE HCL IR 5 MG TAB (IMMEDIATE RELEASE) PO PRN ×4 (01:29→21:17)
[2022-05-29] MEDS: MAGNESIUM HYDROXIDE SUSP 30 ML UDC PO PRN (04:56)
[2022-05-29] MEDS: ACETAMINOPHEN 500 MG TAB PO SCH ×3 (06:09→21:17)
[2022-05-29] MEDS: FLUTICASONE FUROATE 200MCG 14 PUFFS/INHALER INH SCH (07:41)
[2022-05-29] MEDS: UMECLIDINIUM/VILANTEROL 62.5/25MCG 7 PUFFS/INHALER INH SCH (07:44)
[2022-05-29] MEDS: ROSUVASTATIN CALCIUM 10 MG TAB PO SCH (07:46)
[2022-05-29] MEDS: POTASSIUM CHLORIDE 10 MEQ TABCR PO SCH (07:46)
[2022-05-29] MEDS: FUROSEMIDE 20 MG TAB PO SCH (07:46)
[2022-05-29] MEDS: ASCORBIC ACID 500 MG TAB PO SCH ×2 (07:46→17:26)
[2022-05-29] MEDS: MULTIVITAMIN TAB PO SCH (07:47)
[2022-05-29] MEDS: DOCUSATE SODIUM 100 MG CAP PO SCH ×2 (07:47→21:17)
[2022-05-29] MEDS: ASPIRIN 81 MG ECTAB PO SCH ×2 (07:47→21:17)
[2022-05-29] MEDS: TAMSULOSIN HCL 0.4 MG CAP PO SCH (07:47)
[2022-05-29] MEDS: lisinopril 20 MG TAB PO SCH (07:47)
[2022-05-29] MEDS: CHOLECALCIFEROL 1,000 UNITS 25 MCG TAB PO SCH (07:47)
[2022-05-29] MEDS: buPROPion SR 100 MG TABCR PO SCH (07:47)
--- NOTE | 2022-05-29 08:50 | Progress Notes ---
DATE OF SERVICE: 05/29/2022 SUBJECTIVE: A 66-year-old gentleman postop day 4 from a left total hip replacement. Still quite sor e, but getting a little bit better each day. Just waiting for placement. OBJECTIVE: VITAL SIGNS: Temperature 36.5. Vital signs stable. GENERAL: Shows a large middle-aged male. Lying in bed this morning, looks comfortable. EXTREMITIES: Examination of the left leg reveals a Prevena VAC dressing to be in place. No signific ant drainage. Thigh is soft and supple. Leg lengths are equal. Hip is located. He is neurological ly intact. ASSESSMENT: A 66-year-old gentleman, postop day 4 from a left hip replacement, just waiting for plac ement. PLAN: 1. DVT prophylaxis to include thigh-high TEDs, SCDs, and aspirin twice a day. 2. PT/OT, weightbear as tolerated. Left total hip protocol. 3. Pain control, doing okay with current pain regimen. 4. Wound care. He has got a Prevena VAC dressing in place that will stay on for a total of 7 days. 5. Disposition: He is orthopedically okay for discharge. We are just waiting for placement. No be ds available this weekend, hopefully tomorrow. Job ID: [id number]
[2022-05-29] MEDS: SENNA 8.6 MG TAB PO SCH (21:17)
[2022-05-30] MEDS: ACETAMINOPHEN 500 MG TAB PO SCH ×3 (06:14→20:35)
--- NOTE | 2022-05-30 07:53 | Progress Notes ---
DATE OF NOTE: 05/30/2022 SUBJECTIVE: A 66-year-old gentleman postoperative day 5 from a left total hip replacement. He has j ust been waiting for placement. Pain seems to be getting a little bit better daily. No chest pain o r shortness of breath. Not feeling dizzy or lightheaded. OBJECTIVE: VITAL SIGNS: Temperature is 36.5. Vital signs are stable. GENERAL: Shows a large middle-aged male. He is sitting up in bed this morning, looks pretty comfort able. EXTREMITIES: Examination of left hip reveals a Prevena VAC dressing to be in place. Leg lengths wer e equal. Thigh is soft and supple. He is neurologically intact. ASSESSMENT: A 66-year-old gentleman, postoperative day 5 from a left total hip replacement just wait ing for placement. Orthopedically, he is doing fine. Pain seems to be improving. PLAN: 1. DVT prophylaxis includes thigh-high TEDs, SCDs, and aspirin twice a day. 2. PT/OT, weightbear as tolerated. Left total hip protocol. 3. Pain control, doing okay with current pain regimen. 4. Disposition orthopedically okay for discharge. Just waiting for placement. Hopefully, find a pl [place] today. Job ID: [id number]
[2022-05-30] MEDS: FUROSEMIDE 20 MG TAB PO SCH (08:04)
[2022-05-30] MEDS: CHOLECALCIFEROL 1,000 UNITS 25 MCG TAB PO SCH (08:04)
[2022-05-30] MEDS: TAMSULOSIN HCL 0.4 MG CAP PO SCH (08:04)
[2022-05-30] MEDS: POTASSIUM CHLORIDE 10 MEQ TABCR PO SCH (08:04)
[2022-05-30] MEDS: DOCUSATE SODIUM 100 MG CAP PO SCH ×2 (08:04→20:35)
[2022-05-30] MEDS: buPROPion SR 100 MG TABCR PO SCH (08:04)
[2022-05-30] MEDS: ASPIRIN 81 MG ECTAB PO SCH ×2 (08:04→20:35)
[2022-05-30] MEDS: UMECLIDINIUM/VILANTEROL 62.5/25MCG 7 PUFFS/INHALER INH SCH (08:05)
[2022-05-30] MEDS: ASCORBIC ACID 500 MG TAB PO SCH ×2 (08:05→17:52)
[2022-05-30] MEDS: ROSUVASTATIN CALCIUM 10 MG TAB PO SCH (08:05)
[2022-05-30] MEDS: lisinopril 20 MG TAB PO SCH (08:05)
[2022-05-30] MEDS: MULTIVITAMIN TAB PO SCH (08:05)
[2022-05-30] MEDS: FLUTICASONE FUROATE 200MCG 14 PUFFS/INHALER INH SCH (08:05)
[2022-05-30] MEDS: oxyCODONE HCL IR 5 MG TAB (IMMEDIATE RELEASE) PO PRN ×3 (08:08→20:36)
[2022-05-30] MEDS: SENNA 8.6 MG TAB PO SCH (20:35)
[2022-05-31] MEDS: ACETAMINOPHEN 500 MG TAB PO SCH (05:28)
[2022-05-31] MEDS: oxyCODONE HCL IR 5 MG TAB (IMMEDIATE RELEASE) PO PRN (08:42)
[2022-05-31] MEDS: buPROPion SR 100 MG TABCR PO SCH (08:42)
[2022-05-31] MEDS: ASPIRIN 81 MG ECTAB PO SCH (08:42)
[2022-05-31] MEDS: ASCORBIC ACID 500 MG TAB PO SCH (08:42)
[2022-05-31] MEDS: DOCUSATE SODIUM 100 MG CAP PO SCH (08:43)
[2022-05-31] MEDS: FLUTICASONE FUROATE 200MCG 14 PUFFS/INHALER INH SCH (08:43)
[2022-05-31] MEDS: FUROSEMIDE 20 MG TAB PO SCH (08:43)
[2022-05-31] MEDS: MULTIVITAMIN TAB PO SCH (08:43)
[2022-05-31] MEDS: lisinopril 20 MG TAB PO SCH (08:43)
[2022-05-31] MEDS: POTASSIUM CHLORIDE 10 MEQ TABCR PO SCH (08:43)
[2022-05-31] MEDS: UMECLIDINIUM/VILANTEROL 62.5/25MCG 7 PUFFS/INHALER INH SCH (08:43)
[2022-05-31] MEDS: ROSUVASTATIN CALCIUM 10 MG TAB PO SCH (08:43)
[2022-05-31] MEDS: TAMSULOSIN HCL 0.4 MG CAP PO SCH (08:43)
[2022-05-31] MEDS: CHOLECALCIFEROL 1,000 UNITS 25 MCG TAB PO SCH (08:43)
--- NOTE | 2022-05-31 20:45 | Progress Notes ---
SUBJECTIVE: A 66-year-old gentleman now postop day #6 from a left total hip replacement. He is gett ing a little bit better each day. Still pretty sore, but improving. No chest pain or shortness of b reath. Not feeling dizzy or lightheaded. He is just been waiting for placement. OBJECTIVE: VITAL SIGNS: Temperature 36.5. Vital signs stable. GENERAL: Shows a large middle-aged male. He is sitting up in bed and looks pretty comfortable this afternoon when I saw him. EXTREMITIES: Examination of the left hip reveals a Prevena VAC dressing to be in place. His leg meng gths are equal. Thigh is soft and supple. He is neurologically stable. ASSESSMENT: A 66-year-old gentleman, morbidly obese, postop day #6 from a total hip replacement, slo wly improving. Pain continues to be improving. He has got a place to go for recovery. PLAN: 1. DVT prophylaxis includes thigh-high TEDs, SCDs, and aspirin twice a day. 2. PT/OT, weightbear as tolerated. Left total hip protocol. 3. Pain control, doing okay with current pain regimen. 4. Disposition: Plan to discharge today to a long term facility/rehab. I will see him back i n 2-3 weeks out from surgery. Job ID: [id number]
--- NOTE | 2022-06-01 13:03 | Discharge Summary ---
Date of Service June 01, 2022 Discharge Data Procedures Performed Operation Date: 05/25/22 07:00 Actual Procedures p Left Total Hip Arthroplasty(Left) - Stan Henderson MD Hospital Course (1) S/P total left hip arthroplasty: This is a 66 year old patient admitted on 05/25/22 and underwent total hip arthroplasty. He tolerated the procedure well and there were no complications. Transferred to the PACU post op and later to the orthopedic floor for further care. He was given ancef for antibiotic prophylaxis. He was also given LUCIANA stockings, SCDs, and aspirin for DVT prophylaxis. Hemoglobin, hematocrit, and vital signs were monitored during his hospital stay and remained stable. Did not require any blood transfusions. There were no complications during his hospital stay. By post op day #6 the patient was tolerating a regular diet, pain was reasonably controlled with oral pain medicine, he was participating in physical therapy, and accepted for transfer to rehab. On post op day #6 the patient was discharged to a [facility] facility. He was given printed discharge instructions including prescriptions for extra strength tylenol, aspirin, cefadroxil, ketorolac, zofran, senokot, flomax, and oxycodone. Continue physical therapy, weight bearing as tolerated. Continue hip precautions. Continue LUCIANA stockings. Follow up approximately 2 weeks post op or sooner if there are problems or concerns. Coding Diagnoses S/P total left hip arthroplasty Z96.642
== END 2022-05-31 14:52 | DRG 470 ==
LOC: ASU 05:07 → 3W 05:07